=== PATIENT | female | born 1970 | race Caucasian/White ===

== ENCOUNTER 2017-02-12 13:41 | Emergency (ER) | payer OTHER ==
[2017-02-12 13:57] VITALS: TEMP 98.9
[2017-02-12] MEDS ORDERED: Oxycodone/Acetaminophen 5/325 mg Tab PO STA (14:04)
--- NOTE | 2017-02-12 14:08 | ED PDOC ---
Arrival/HPI - General Chief Complaint: Dental Pain Time Seen by Provider: 02/12/17 14:04 Historian: Patient - History of Present Illness Narrative History of Present Illness (Text): 02/12/17 14:05 46 y/o female, no significant pmh, nkda, c/o rt. lower molar pain x 2 days. Pt. stated that she went to see her own dentist about 2 days ago which he extracted the rt. lower molar and tell her to take motrin at home for the pain. Pt. has no fever or chills, no facial swelling, more painful today and took motrin 4 hour prior to arrival, no fever or chills, no headache or night sweat, no other medical or psychological complaints. Past Medical History - Provider Review Nursing Documentation Reviewed: Yes - Psychiatric Hx Substance Use: No - Anesthesia Hx Anesthesia: No Hx Anesthesia Reactions: No Hx Malignant Hyperthermia: No Family/Social History - Physician Review Nursing Documentation Reviewed: Yes Family/Social History: Unknown Family HX Smoking Status: Former Smoker Hx Alcohol Use: No Hx Substance Use: No Allergies/Home Meds Allergies/Adverse Reactions: Allergies No Known Allergies Allergy (Verified 02/12/17 14:00) Review of Systems - Review of Systems Constitutional: absent: Fatigue, Fevers Eyes: absent: Vision Changes ENT: Other (toothache). absent: Hearing Changes Respiratory: absent: Cough, Sputum Cardiovascular: absent: Chest Pain Gastrointestinal: absent: Abdominal Pain, Nausea, Vomiting Musculoskeletal: absent: Arthralgias, Back Pain, Neck Pain Skin: absent: Rash, Pruritis, Skin Lesions, Laceration, Abscess, Ulcer Neurological: absent: Headache Psychiatric: absent: Anxiety, Depression, Suicidal Ideation Physical Exam Vital Signs Reviewed: Yes Vital Signs Temp Pulse Resp BP Pulse Ox 02/12/17 13:42 98.9 F 69 18 92/70 L 98 Temperature: Afebrile Pulse: Regular Respiratory Rate: Normal Appearance: Positive for: Well-Appearing, Non-Toxic Pain Distress: Severe Mental Status: Positive for: Alert and Oriented X 3 - Systems Exam Head: Present: Atraumatic, Normocephalic Pupils: Present: PERRL Extroacular Muscles: Present: EOMI Conjunctiva: Present: Normal Mouth: Present: Moist Mucous Membranes, Other (there is partially extracted rt. lower molar along with other rt. lower molar with dental caries and cracked with no gingivitis or gingival abscess, no facial swelling. ) Nose (External): Present: Atraumatic. No: Abrasion, Contusion, Laceration Nose (Internal): Present: Normal Inspection, No Active Bleeding. No: Rhinorrhea , Septal Hematoma, Epistaxis Neck: Present: Normal Range of Motion Respiratory/Chest: Present: Clear to Auscultation, Good Air Exchange. No: Respiratory Distress, Accessory Muscle Use Cardiovascular: Present: Regular Rate and Rhythm, Normal S1, S2. No: Murmurs Abdomen: Present: Normal Bowel Sounds. No: Tenderness, Distention, Peritoneal Signs Back: Present: Normal Inspection Upper Extremity: Present: Normal Inspection. No: Cyanosis, Edema Lower Extremity: Present: Normal Inspection. No: Edema Neurological: Present: GCS=15, CN II-XII Intact, Speech Normal Skin: Present: Warm, Dry, Normal Color. No: Rashes Psychiatric: Present: Alert, Oriented x 3, Normal Insight, Normal Concentration Medical Decision Making ED Course and Treatment: 02/12/17 14:11 -viscous lidocaine 15cc swish and spit -percocet and augmentin -pt. is taking a cab home. Discharge home with augmentin, naproxen, salt water gargling, soft food diet, please follow up with your own dentist and pmd within 2 days, return to the ER for any new or worsening signs or symptoms. 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 Disposition/Present on Arrival - Present on Arrival Any Indicators Present on Arrival: No History of DVT/PE: No History of Uncontrolled Diabetes: No Urinary Catheter: No History of Decub. Ulcer: No History Surgical Site Infection Following: None - Disposition Have Diagnosis and Disposition been Completed?: Yes Diagnosis: Dental caries, Pain, dental Disposition: HOME/ ROUTINE Disposition Time: 14:13 Patient Plan: Discharge Condition: GOOD Additional Instructions: Discharge home with augmentin, naproxen, salt water gargling, soft food diet, please follow up with your own dentist and pmd within 2 days, return to the ER for any new or worsening signs or symptoms. Prescriptions: Amoxicillin/Clavulanate [Augmentin 875 MG-125 MG] 1 tab PO BID #18 tab Naproxen 500 mg PO BID PRN #20 tab PRN Reason: Other Referrals: [facility] [place] [Outside] - Follow up with primary Yoav Cardoza DMD [Staff Provider] - Follow up with primary Forms: WORK NOTE
[2017-02-12] MEDS ORDERED: Amoxicillin-Clav 875-125 mg Tab PO STA (14:11)
[2017-02-12 15:09] VITALS: BP 116/72; PULSE 72; RESP 16; O2SAT 100
== END 2017-02-12 15:08 | disposition home or self-care (01) ==
LOC: MERGE 13:41 → ED 13:41
DX: K02.9 Dental caries, unspecified (principal); K08.89 Other specified disorders of teeth and supporting structures